=== PATIENT | female | born 1960 | race Caucasian/White ===

== ENCOUNTER 2016-11-06 21:02 | Emergency (ER) | payer BC ==
[2016-11-06] MEDS ORDERED: DIPHTH,PERTUSS(ACELL),TET VAC 0.5 ML VIAL IM ONE ×2 (21:22→21:24)
[2016-11-06 21:46] VITALS: BP 165/68
[2016-11-06] MEDS ORDERED: ceFAZolin SODIUM 2 GM in DEXTROSE 5 % IN WATER 100 ML IV ONE ×2 (22:13)
--- NOTE | 2016-11-06 22:24 | ERNOTE ---
Head Injury HPI - General Source: patient Exam Limitations: no limitations - Immun/Allergies/Home Medications Immunization: IMMUNIZATION HX Immunizations Up to Date No History of Influenza Vaccine No Hx Pneumococcal Vaccination No Allergies/Adverse Reactions: Allergies Allergy/AdvReac Type Severity Reaction Status Date / Time codeine [Codeine] Allergy Verified 11/06/16 21:16 erythromycin base Allergy Verified 11/06/16 21:16 morphine Allergy Verified 11/06/16 21:16 potassium clavula Allergy Verified 11/06/16 21:16 *RETIRED-10/15/12 [From Augmentin] Home Medications: HOME MEDICATIONS Amox Tr/Potassium Clavulanate [Augmentin 875-125 Tablet] 875 mg PO Q12H #20 tab 11/06/16 [Last Taken Unknown] Atorvastatin Calcium [Lipitor] 20 mg PO DAILY 11/06/16 [Last Taken Unknown] Escitalopram Oxalate [Lexapro] 20 mg PO DAILY 11/06/16 [Last Taken Unknown] Omeprazole [Prilosec] 20 mg PO DAILY 11/06/16 [Last Taken Unknown] Triamterene/Hydrochlorothiazid [Maxzide 37.5MG/25 MG] 1 tab PO DAILY 11/06/16 [ Last Taken Unknown] Valsartan [Diovan] 40 mg PO DAILY 11/06/16 [Last Taken Unknown] Zolpidem Tartrate 10 mg PO HS 11/06/16 [Last Taken Unknown] - History of Present Illness Narrative: Patient was horsing around with a friend and she fell onto her face onto the hard surface. She has a small laceration on the right side of the nose she has a small abrasion on the left zygomatic region small abrasion on the right forearm she has pain in the area of the nasal spine along her nose she has pain in her right thumb. Review of Systems - Review of Systems Constitutional: Present: See HPI EYE: Present: no symptoms reported ENT: Present: See HPI, other - pain in the area of her nose. Respiratory: Present: no symptoms reported Cardiology: Present: no symptoms reported Gastrointestinal/Abdominal: Present: no symptoms reported - Patient's Past Medical History Patient History - Medical: Other Patient History - Cardiac/Respiratory: Asthma Patient History - Cancer: No Hx of Cancer Patient History - Surgical Procedures: Cholecystectomy, Hysterectomy, T & A, Other Patient History - Other: None LMP (females 10-50): hysterectomy - Social History Living Situations: home Psych History: Hx of Depression, Current tx/ever been on anti-depressants or anti-anxiety meds Smoking Status: Never smoker Alcohol Use: none Drug Use: none - Immunizations Immunizations Up to Date: No Hx Pneumococcal Vaccination: No History of Influenza Vaccine: No Physical Exam - Physical Exam General Appearance: Present: wd/wn, alert, severe distress Head Exam: Present: other - she has a 0.8 cm very superficial laceration that I cannot open on the right side of her nose between the medial epicanthus of the right eye and the nasal spine. She has a small abrasion on the left zygomatic region just inferior to the left lateral epicanthus of the left eye. She has a tiny abrasion on her right thumb first metacarpal joint she does have an area of swelling above the left eyebrow which is slightly ecchymotic. The eye itself is not affected Eye Exam: Normal inspection: bilateral, PERRL: bilateral, EOMI: bilateral Neck: Present: normal inspection, nontender, other - this examiner aggressively palpated the cervical spine and there was actually no tenderness patient has full range of motion without any pain in that region. Respiratory: Present: no respiratory distress, normal breath sounds, chest nontender, lungs clear Cardiovascular/Chest: Present: regular rate, rhythm, no murmur, normal peripheral pulses Extremity Exam: Present: other - patient has some pain upon flexion of the right thumb however alignment is normal I don't feel crepitus there is no deformity or ecchymosis ED Progress - Vital Signs Patient's Vital Signs:: I have reviewed the patient's vital signs. Vital Signs: Vital Signs 11/06/16 11/06/16 21:07 21:41 Temperature 36.8 C Pulse Rate 59 L 58 L Respiratory 16 16 Rate Blood Pressure 167/76 165/68 O2 Sat by Pulse 100 97 Oximetry - CT/Ultrasound CT/Ultrasound Narrative: CT of the facial bones reveals a fracture of the nasal spine. - Progress/Reassessment Chief Complaint: Head Injury Plan - Plan Plan: By definition this patient happens to have an open fracture of the nasal spine with a small superficial laceration on the nose which I am unable to open up, this patient's abrasions/superficial lacerations will be Steri-Stripped in position and closed. She will be given Ancef 2 g IV sent home on Augmentin and she is to see an earspecialist this week. Departure Clinical Impression: Open nasal fracture Qualifiers: Encounter type: initial encounter Qualified Code(s): S02.2XXB - Fracture of nasal bones, initial encounter for open fracture - Departure Disposition: Home self-care Condition: Good Instructions: Nasal Fracture, [id number] Referrals: Chantal Jacques MD [Primary Care Provider] - Prescriptions: Amox Tr/Potassium Clavulanate [Augmentin 875-125 Tablet] 875 mg PO Q12H #20 tab
== END 2016-11-06 23:16 | disposition home or self-care (01) ==
LOC: ER 21:02
DX: S02.2XXB Fracture of nasal bones, initial encounter for open fracture (principal); F32.9 Major depressive disorder, single episode, unspecified; Z23 Encounter for immunization; W01.198A Fall on same level from slipping, tripping and stumbling with subsequent striking against other object, initial encounter; Y93.83 Activity, rough housing and horseplay